=== PATIENT | male | born 1945 | race Caucasian/White ===

== ENCOUNTER 2022-12-16 11:35 | Day surgery (SDC) | payer MEDICARE, SELFPAY ==
[2022-12-16] VITALS (9 sets, daily range): BP systolic 112–180; BP diastolic 67–86; PULSE 54–63; RESP 13–18; TEMP 36.4–37.1; O2SAT 95–99; BMI 28.5
--- NOTE | 2022-12-16 11:43 | DI.RAD.S_ITS ---
PROCEDURE: XR FINGER LT MIN 2V INDICATIONS: tip of pinky finger pinched off in scaffolding TECHNIQUE: AP hand, 2 views of the left pinky finger(s) acquired. COMPARISON: None. FINDINGS: Bones: There is tiny cortical irregularity of the distal phalanx of the pinky consistent with partial amputation. Soft tissues: No suspicious soft tissue calcifications. Corresponding soft tissue amputation of the distal 5th digit. IMPRESSION: Partial amputation of the distal 5th distal phalanx. Dictated by: Sander Gonzalez M.D. on 12/16/2022 at 11:02 Approved by: Sander Gonzalez M.D. on 12/16/2022 at 11:09
[2022-12-16] MEDS: TET,DIPH,PERTUSS(ACELL),VAC/PF 0.5 ML SYRINGE IM (12:26)
--- NOTE | 2022-12-16 13:27 | ED_ITS ---
HPI - Extremity Injury (Upper) General Chief Complaint: Extremity Injury, Upper Stated Complaint: sent [facility] cut off tip of above knuckle Time Seen by Provider: 12/16/22 13:23 Source: patient Mode of arrival: Ambulatory History of Present Illness HPI narrative: 77-year-old male with no reported medical issues who presents with complaint of injury to the left hand 5th digit. Patient states they were building some scaffolding then it sort of fell and pinched off the end of his finger he was seen in urgent care appears to have a amputation of the distal 5th phalanx. Patient states he would an abrasion to the 4th finger but no other injury. He is unsure if his tetanus is up-to-date. He states he has pain right at the site but otherwise well controlled. Denies any other injuries. Patient states no daily medications no prior surgeries. No known drug allergies. Denies tobacco, no regular alcohol or illicit. He is accompanied by his . She did give him aspirin this morning after it occurred but does not take any daily ant icoagulation or regular aspirin. Related Data Previous Rx's Medication Instructions Recorded cephalexin 250 mg capsule 500 mg (2 x 250 mg) PO TID #30 caps 12/16/22 hydrocodone 5 mg-acetaminophen 325 1 tab PO Q6HR PRN Pain, Moderate 12/16/22 mg tablet (4-6) #15 tabs Allergies Allergy/AdvReac Type Severity Reaction Status Date / Time No Known Drug Allergies Allergy Verified 12/16/22 11:39 Review of Systems Review of Systems ROS Unobtainable: All systems reviewed & are unremarkable except as noted in HPI and below Patient History Social History household members: spouse Smoking Status: Never smoker Smoking Status: Never smoker alcohol intake frequency: a few times a month Substance Use Type: does not use Exam Narrative Exam Narrative: GENERAL: Alert and oriented x three, well-appearing male in mild distress HEENT: Head normocephalic, atraumatic, EOMI, pupils reactive, face symmetric, moist mucous membranes NECK: Supple, full range of motion CARDIOVASCULAR: Regular rate and rhythm without murmurs, rubs or gallops. RESPIRATORY: Breath sounds equal bilaterally, no wheezes rales or rhonchi. ABDOMEN: Soft, nontender. Normoactive bowel sounds all 4 quadrants. No guarding or rebound, rigidity, no mass EXTREMITIES: Normal range of motion, no clubbing or edema. Neurovascularly intact, with the exception of the distal 5th phalanx has been amputated about to the distal joint, the nail is completely missing, patient has a small amount of bone protruding. Patient does not have any skin available to flap over here in the department. He is intact with sensation throughout the rest of the finger, he does have pain at the distal end. There is no necrosis or other obvious discoloration. No contaminant appreciated. Patient has 2+ radial pulse with full range of motion otherwise of all 5 fingers hand and wrist. NEUROLOGICAL: Cranial nerves II through XII grossly intact. Moving all extremities SKIN: Warm, dry, no petechiae, no rashes or lesions. See above. Initial Vital Signs Initial Vital Signs: Vital Signs Temperature 98.7 F 12/16/22 11:39 Pulse Rate 61 12/16/22 11:39 Respiratory Rate 18 12/16/22 11:39 Blood Pressure 180/79 H 12/16/22 11:39 Pulse Oximetry 99 12/16/22 11:39 Oxygen Delivery Method Room Air 12/16/22 11:39 Course Orders Ordered: ED Orders 12/16/22 11:43 XR finger LT min 2V Stat Discontinued Medications Hydrocodone Bitart/Acetaminophen (Hydrocodone/Acet 5/325 Tablet) 1 tab PO Q6HR PRN PRN Reason: Pain, Moderate (4-6) Bupivacaine HCl (Bupivacaine 0.5% (Pf) 30 Ml Vial) 30 ml INJ NOW ONE Stop: 12/16/22 15:42 Last Admin: 12/16/22 15:41 Dose: 15 ml Documented By: TALIA Cephalexin HCl (Cephalexin 250 Mg Capsule) 500 mg PO TID BRENDEN Diphtheria/Tetanus/Acell Pertussis (Tet,Diph,Pertuss(Acell),Vac/Pf 0.5 Ml Syringe) 0.5 ml IM .ONCE ONE Stop: 12/16/22 12:18 Last Admin: 12/16/22 12:26 Dose: 0.5 ml Documented By: TEP Cefazolin Sodium/Dextrose (Ancef) 100 mls @ 200 mls/hr IV NOW ONE Stop: 12/16/22 14:00 Last Infusion: 12/16/22 14:23 Dose: Infused Documented By: Admin: 12/16/22 13:53 Dose: 200 mls/hr Documented By: TEP Lactated Ringer's (Lactated Ringers) 1,000 mls @ 42 mls/hr IV CONT BRENDEN Last Infusion: 12/16/22 15:45 Dose: 42 mls/hr Documented By: Admin: 12/16/22 14:32 Dose: 42 mls/hr Documented By: CG Vital Signs Vital signs: Vital Signs - 8 hr 12/16/22 11:39 12/16/22 12:54 12/16/22 13:03 Temperature 98.7 F Pulse Rate 61 58 L Pulse Rate [Left Radial] 58 L Respiratory Rate 18 Blood Pressure 180/79 H Pulse Oximetry 99 97 Oxygen Delivery Method Room Air 12/16/22 13:04 12/16/22 13:04 12/16/22 13:30 Temperature Pulse Rate 56 L 57 L Pulse Rate [Left Radial] Respiratory Rate Blood Pressure 125/82 Pulse Oximetry 98 95 Oxygen Delivery Method 12/16/22 13:30 12/16/22 14:00 Temperature Pulse Rate 63 Pulse Rate [Left Radial] Respiratory Rate Blood Pressure 150/86 H Pulse Oximetry 98 Oxygen Delivery Method MDM - Extremity Injury (Upper) Imaging Data Extremity x-ray #1: Radiologist's Impression: [place] [address] XRay Report Signed Patient: Isai Adamson MR#: [id number] : 1945 Acct:[id number] Age/Sex: 77 / M Date of Service: 12/16/22 Loc: ED Accession Number: [id number] Procedure: XR finger LT min 2V Ordering Provider: Molly Scott D.O. PROCEDURE: XR FINGER LT MIN 2V INDICATIONS: tip of pinky finger pinched off in scaffolding TECHNIQUE: AP hand, 2 views of the left pinky finger(s) acquired. COMPARISON: None. FINDINGS: Bones: There is tiny cortical irregularity of the distal phalanx of the pinky consistent with partial amputation. Soft tissues: No suspicious soft tissue calcifications. Corresponding soft tissue amputation of the distal 5th digit. IMPRESSION: Partial amputation of the distal 5th distal phalanx. Dictated by: Sander Gonzalez M.D. on 12/16/2022 at 11:02 Approved by: Sander Gonzalez M.D. on 12/16/2022 at 11:09 [facility] Narrative Medical decision making narrative: 77-year-old male with distal amputation of his 5th phalanx on the right hand. Spoke with Orthopedic surgery after evaluating the patient, x-ray was reviewed as well no foreign bodies patient does have a distal amputation of the bone as well and does appear to be have some protruding. Spoke with Dr. Bhakta, she accepts with plan for OR today likely outpatient surgery. Patient was covered with a dose of IV antibiotics, line was placed patient's tetanus was updated. He is not on any anticoagulants otherwise fairly healthy gentleman according to his reported history. Last intake was at 8:30 a.m. this morning patient states he would a protein shake but denies any other ingestion. Discharge Plan Departure Patient Disposition: Admitted to Surgery Clinical Impression: Amputation of finger tip Admit Date/Time: 12/16/22 14:19 Admit Provider: Stefania Bhakta
[2022-12-16] MEDS: CEFAZOLIN 2 GM/100 ML PREMIX 100 ML IV (13:53)
--- NOTE | 2022-12-16 14:19 | P.HP_ITS ---
History of Present Illness History of Present Illness Date Patient Seen: 12/16/22 Time Patient Seen: 14:20 Date of Onset of Symptoms: 12/16/22 Chief complaint: sent [facility] cut off tip of above knuckle Narrative: This is a 77-year-old gentleman who was working at the [employer] volunteering when a scaffolding fell and caught his left hand and he lost the tip of his small finger. He also had a minor injury to his ring finger. He is right-hand d ominant. He noted the loss of tip of his finger. He is retired. He notes he is healthy overall and has not had any major medical problems but he does have a history of a cholecystectomy. [facility] Social History Smoking Status: Never smoker Meds Home Medications and Allergies Allergies Allergy/AdvReac Type Severity Reaction Status Date / Time No Known Drug Allergies Allergy Verified 12/16/22 11:39 Review of Systems Review of Systems Narrative: He notes he has been healthy other overall, no chest pain no pulmonary problems, was not confused her having mental issues prior to his injury. Exam Vital Signs (past 8 hours): - 12/16/22 11:39 12/16/22 12:54 12/16/22 13:03 Temperature 98.7 F Pulse Rate 61 58 L Pulse Rate [Left Radial] 58 L Respiratory Rate 18 Blood Pressure 180/79 H Pulse Oximetry 99 97 Oxygen Delivery Method Room Air 12/16/22 13:04 12/16/22 13:04 12/16/22 13:30 Temperature Pulse Rate 56 L 57 L Pulse Rate [Left Radial] Respiratory Rate Blood Pressure 125/82 Pulse Oximetry 98 95 Oxygen Delivery Method 12/16/22 13:30 12/16/22 14:00 Temperature Pulse Rate 63 Pulse Rate [Left Radial] Respiratory Rate Blood Pressure 150/86 H Pulse Oximetry 98 Oxygen Delivery Method Oxygen Delivery Method Room Air Narrative Exam Narrative: HEENT is benign lungs are clear cor regular rate and rhythm abdomen soft and benign examination of the left upper extremity shows a partial finger tip amputation of the 5th finger with exposed bone of the distal phalanx of the small finger on the left hand, there is also a laceration and partial soft tissue loss of the ring finger distal tip, he is able to fire his finger flexors and extensors nerves no major leg, there was no active bleeding, Objective Labs Labs: Left hand x-ray shows a 5th finger tip partial amputation with some soft tissue and bone loss
[2022-12-16] MEDS: LACTATED RINGERS 1,000 ML 42 ML IV (14:32)
--- NOTE | 2022-12-16 14:35 | PM.OP.1 ---
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 He lost the tip of his 5th finger and had an injury to his 4th finger. Surgeon: Stefania Bhakta Click Yes if Unassisted: Yes Anesthesia Type: Other (IV regional with block) Operative Notes Findings: Distal tip amputation, some contamination, adequate closure without tension Closure Type: primary Specimen(s): none sent Estimated Blood Loss (mL): 20 Blood products transfused: none Procedure in detail: Patient was brought to the operating room he underwent induction of an IV regional. His left lower extremity was prepped draped standard sterile fashion. The wound was carefully examined. He was given IV antibiotics preoperatively. There was a partial amputation of the 5th finger. The distal tip was meticulously irrigated with normal saline. There was inadequate coverage of the distal tip without shortening the distal phalanx was carefully shortened with a completion amputation and closure. A bone cutter was used to resect a portion of the bone. The soft tissues were then carefully mobilized after meticulously debriding and the wound was closed with interrupted chromic. I did make an incision along the base of the nail in order to allow additional mobilization of the distal flap in order to allow in proved bone coverage. Adequate coverage was achieved. A dense digital block was performed. The wound was dressed sterilely. He was placed in splint. Complications: none Post-operative Condition: stable Disposition: same day surgery Plan for aftercare: Keep splint on to protect the distal tip of the finger and keep the wound dry. Take antibiotics for a week. Return to clinic in 7-14 days for a wound check and probable suture removal
--- NOTE | 2022-12-16 15:11 | SUR.OPER ---
Supine on padded OR bed, head on pillow, non-operative arm secured on padded arm board at <90 degrees abduction, operative extremity on padded arm table, legs uncrossed, safety belt at thigh, tape over blanket over lower legs.
[2022-12-16] MEDS: BUPIVACAINE 0.5% (PF) 30 ML VIAL INJ (15:41)
== END 2022-12-16 16:05 | disposition home or self-care (01) ==
LOC: ED 13:37 → AC 14:30 → OR 12-18 10:28
PROVIDERS: Emergency Provider Emergency Medicine; PCP Internal Medicine; Referring Provider Emergency Medicine; Visit Provider Orthopaedic Surgery
PROC: (CPT 26951; principal; 2022-12-16 15:45)
DX: S68.627A Partial traumatic transphalangeal amputation of left little finger, initial encounter (principal); W23.1XXA Caught, crushed, jammed, or pinched between stationary objects, initial encounter; Z23 Encounter for immunization
CPT/HCPCS: 26951; 36415; 73140; 90471; 96365; 99284; 90715; J0690; J2704; J3010